=== PATIENT | male | born 1970 ===

== ENCOUNTER 2020-10-26 14:37 | Emergency (ER) | payer OTHER ==
[~2020-10-26] VITALS: Ht 175.3 cm; Wt 76.2 kg
== END 2020-10-26 20:48 | disposition home or self-care (01) ==
LOC: ER 14:37
DX: K40.20 Bilateral inguinal hernia, without obstruction or gangrene, not specified as recurrent (principal)

== ENCOUNTER 2021-04-11 08:30 | Outpatient (CLI) | payer OTHER | END 2021-04-11 09:00 | disposition home or self-care (01) | LOC: PPH VACUNA 08:30 | PROVIDERS: ATTEND Emergency Medicine Pediatric Emergency Medicine | DX: Z23 Encounter for immunization (principal) ==